=== PATIENT | female | born 1985 ===

== ENCOUNTER 2018-01-23 09:01 | Inpatient (IN) | payer BC, OTHER ==
[2018-01-23 09:14] VITALS: BMI 27.6
[2018-01-23] MEDS ORDERED: Oxytocin 30 UNIT 30 UNITS/500 ML BAG IV ONE ×2 (09:58→09:59)
[2018-01-23] MEDS ORDERED: Lactated Ringer's 1,000 ML IV SCH ×2 (10:00)
--- NOTE | 2018-01-23 10:36 | OBHP ---
Datetime: 01/23/2018 10:14 IP Adm Impression: Term, intrauterine ; Active labor; Intact Membranes IP Chief Complaint Other: Vaginal spotting IP Admit Plan: Admit to unit; Initiate labor protocol Admit Comment, IP Provider: Patient seen and examined at approximately 0946 hours 32 y.o. , LMP 04/26/17, KSENIA 01/31/18, EGA 38w 6d c/o vaginal spotting - noted at 0700 hours when wiping after micturition. Also, onset of Ctx 01/22/18 approx 2100 hours; pain scale now 3/10. (+) AFM; denies LOF. care: Dr. Davila, 1st visit 09/2017; total visits approx 8. Noted for anem ia. P Ob: x 2: 2003, male, 6lbs. 2016, female, 7lb 11 oz, pre-eclampsia. both at [facility]. 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 Denies h/o STIs, abnormal Pap, myomata, ovarian cysts. PMH: denies PSH: denies NKDA Meds: PNV, Fe - both, QD Soc Hx: denies tobacco, illicit drug or EtOH use. x 4 years. Lives with and childr en. Stay at home Fam Hx: Mother age 55 due to CVA, h/o HTN. Father alive 80s -= pt doesn't know much. No k nown fam h/o cancer P.E.: as above. WD in NAD. Awake, alert, oriented to time, person and place. Pleasant and cooperat joy. present and supportive Assessment: 32 y.o. P2012, 38w 6d, entering active phase of labor. Anemic. GBS (-). Category 1 tra cing. D/W patient the following: cervical ripening, then possible pitocin, pain relief. Patient expre ssed an understanding and agrees. No questions offered. Clinically stable. Plan: 1) Admit 2) NPO 3) IVFS 4) Continuous EFM 4) Admission labs 6) Cytotec 50 micrograms p.o. x 1 7) Pitocin 8) Epidural, upon request 9) Anticipate vaginal delivery - as per, and discussed with, Dr. Davila Pelvic Type - PN: Adequate Extremities - PN: Normal Abdomen - PN: Normal Back - PN: Normal Breast - PN: Normal Lungs - PN: Normal Heart - PN: Normal Thyroid - PN: Not Done Neurologic - PN: Normal HEENT - PN: Normal General - PN: Normal Weight - Estimated: 3632 Presentation-Admit: Vertex FHR - Baseline A Provider: 125 Membranes, Provider: Intact Contraction Comments Provider: 8-10 Comments, ACOG Physical Exam: 01/14/18: GBS (-) 12/09/17: 1 hr GTT 118 10/12/17: CF (-); H/H 9.1/28.2; Hgb AA; GC/chl (-)/(-); Pap (-) Abdomen: Gravid. Soft. Non tender. Fundal height 36 cm All other systems reviewed and are negative Gestation - Est Wks by US: 38w 6d IP Hx Assessment: The History has been Reviewed and is Current EGA AdmitDate IP: 38.6 Vital Signs Provider: Reviewed IP Indication for Induction: Not Applicable IP Chief Complaint: Uterine contractions NICHD Variability Prov Fetus A: Moderate 6-25bpm NICHD Accel Fetus A IP Provider: 15X15 FHR Category Provider Fetus A: Category I NICHD Decel Fetus A IP Provider: None Dilatation, Provider: 4-5 Effacement, Provider: 40 Station, Provider: -3 Genitourinary Exam: Normal DTRs - PN: Normal
[2018-01-23 10:49] LABS: BASO # 0.1 K/uL (0.0-0.2); BASO % 0.6 % (0.0-2.0); EOS % 0.4 % (0.0-4.0); LYMPH # 1.4 K/uL (1.0-4.3); LYMPH % 15.3 % (20.0-40.0); MEAN CORPUSCULAR HEMOGLOBIN 22.2 pg (27.0-31.0); MEAN CORPUSCULAR HGB CONC 32.4 g/dL (33.0-37.0); MEAN PLATELET VOLUME 10.2 fL (7.2-11.7); MONO # 0.5 K/uL (0.0-0.8); MONO % 5.2 % (0.0-10.0); NEUT # 7.2 K/uL (1.8-7.0); NEUT % 78.5 % (50.0-75.0); RBC 4.6 Mil/uL (3.80-5.20); RED CELL DISTRIBUTION WIDTH 16.2 % (11.5-14.5); WHITE BLOOD COUNT 9.2 K/uL (4.8-10.8)
[2018-01-23 10:51] LABS: HEMOGLOBIN 10.2 g/dL (11.0-16.0)
[2018-01-23 10:52] LABS: MEAN CELL VOLUME 68.5 fL (81.0-99.0)
[2018-01-23 11:02] LABS: SQUAMOUS EPITHIAL 5 /hpf (0-5); URINE BACTERIA RARE (<OCC); URINE BILIRUBIN NEGATIVE (NEGATIVE); URINE BLOOD 3+ (NEGATIVE); URINE CLARITY Clear (Clear); URINE COLOR Yellow (YELLOW); URINE GLUCOSE (UA) NORMAL (Normal); URINE LEUKOCYTE ESTERASE TRACE Leu/uL (Negative); URINE PROTEIN NEGATIVE (NEGATIVE); URINE UROBILINOGEN NORMAL mg/dL (0.2-1.0)
[2018-01-23 11:03] LABS: ALB/GLOB RATIO 0.9 (1.0-2.1); ALBUMIN 3.6 g/dL (3.5-5.0); ALT/SGPT 36 U/L (9-52); AST/SGOT 31 U/L (14-36); BLOOD UREA NITROGEN 9 mg/dL (7-17); CALCIUM 8.7 mg/dl (8.6-10.4); GFR AFRICAN-AMERICAN > 60; GFR NON-AFRICAN AMERICAN > 60
[2018-01-23] MEDS ORDERED: Fentanyl/Bupivacaine HCl 250 ML EPI ONE (12:09)
[2018-01-23] MEDS ORDERED: Benzocaine/Menthol 20%-0.5% Topical Spray (60 ml) TOP PRN (15:03)
--- NOTE | 2018-01-23 15:03 | OBPN ---
Datetime: 01/23/2018 14:59 IP Progress Impression: Normal progression of labor IP Procedures: Sterile Vag Exam FHR - Baseline A Provider: 130 IP Progress Note Comment: pt was examined at bed side ve fd/100/0 will start pishing anticipate NICHD Variability Prov Fetus A: Moderate 6-25bpm Dilatation, Provider: 10 Effacement, Provider: 100 Station, Provider: 0 NICHD Decel Fetus A IP Provider: Variable Datetime: 01/23/2018 10:14 Membranes, Provider: Intact Contraction Comments Provider: 8-10 Gestation - Est Wks by US: 38w 6d Weight - Estimated: 3632 Presentation-Admit: Vertex Vital Signs Provider: Reviewed NICHD Accel Fetus A IP Provider: 15X15 FHR Category Provider Fetus A: Category I
--- NOTE | 2018-01-23 15:03 | OBADHP ---
Datetime: 01/23/2018 14:59 FHR - Baseline A Provider: 130 NICHD Variability Prov Fetus A: Moderate 6-25bpm NICHD Decel Fetus A IP Provider: Variable Dilatation, Provider: 10 Effacement, Provider: 100 Station, Provider: 0 Datetime: 01/23/2018 10:14 EGA AdmitDate IP: 38.6
--- NOTE | 2018-01-23 15:03 | OBDS ---
DELIVERY PERSONNEL Delivery Doctor: Donn Davila MD Smt Machine Operator: Alexa Farris RN Anesthesiologist: dr. palomino MATERNAL INFORMATION Delivery Anesthesia: Epidural Medications in Delivery: pitocin 20 units Estimated Blood Loss (ml): 300 Placenta Cultured: No Maternal Complications: None RN Comments: h/o anemia h/o pre eclempsia with last 2015 late registration (6months) Provider Comments: dr private davila baby deliverd in nate. end chastity. cord arrpund neck loose. cord gas. ui ux developer com LABOR SUMMARY EDC: 01/31/2018 00:00 No. Babies in Womb: 1 Attempted: No LABOR INFORMATION Reason for Induction: Not Applicable Onset of Labor: 01/22/2018 21:00 Cervical Ripening Agents: Cytotec @ (Annotations: 50 mcg orally) Group B Beta Strep: Negative Steroids Given: None Reason Steroids Not Administered: Not Applicable MEMBRANES Membranes Rupture Method: Artificial Rupture of Membranes: 01/23/2018 13:11 Length of Rupture (hrs): 1.60 Amniotic Fluid Color: Clear Amniotic Fluid Amount: Moderate Amniotic Fluid Odor: Normal STAGES OF LABOR Stage 3 hrs: 0 Stage 3 min: 2 Total Time in Labor hrs: 17 Total Time in Labor min: 49 VAGINAL DELIVERY Episiotomy: Right Mediolateral Laceration Extension: N/A Laceration Type: None Laceration Repair Note: repaired with 2 and 3 chromic BABY A INFORMATION Infant Delivery Date/Time: 01/23/2018 14:47 Method of Delivery: Vaginal Born in Route : No : N/A SHOULDER DYSTOCIA BABY A Delivery Date/Time: 01/23/2018 14:47 PRESENTATION/POSITION BABY A Presentation: Cephalic Cephalic Presentation: Vertex Vertex Position: Right Occipital Anterior Breech Presentation: N/A PLACENTA INFORMATION BABY A Placenta Delivery Time : 01/23/2018 14:49 Placenta Method of Delivery: Spontaneous Placenta Status: Delivered SCORES BABY A Heart Rate 1 min: >100 bpm Resp Effort 1 min: Good Cry Reflex Irritability 1 min: Cough or Sneeze or Pulls Away Muscle Tone 1 min: Active Motion Color 1 min: Body [place], Extremities Blue SCORE 1 MIN: 9 Heart Rate 5 min: >100 bpm Resp Effort 5 min: Good Cry Reflex Irritability 5 min: Cough or Sneeze or Pulls Away Muscle Tone 5 min: Active Motion Color 5 min: Body [place], Extremities Blue SCORE 5 MIN: 9 INFORMATION BABY A Gestational Age at Delivery: 38.6 Gestational Status: Term Infant Outcome : Liveborn Condition : Stable Infant Sex: Female IDENTIFICATION/MEDS BABY A ID Band Number: [id number] ID Band Location: Left Leg; Left Arm Sensor Applied: Yes Sensor Number: [id number] Sensor Location : Cord Clamp Vitamin K Given : Aquamephyton 0.5 mg IM Erythromycin Given: Given Both Eyes WEIGHT/LENGTH BABY A Infant Birthweight (gms): 3265 Infant Weight (lb): 7 Weight (oz): 3 Length Inches: 19.50 Infant Length cms: 49.5 CORD INFORMATION BABY A No. Cord Vessels: 3 Nuchal Cord : Around Neck x1, Loose Nuchal Cord Other: 0 True Knot: 0 Cord Blood Taken: Yes Suction: Mouth ASSESSMENT BABY A Infant Complications: None Physical Findings at Delivery: Within Normal Limits Respirations: Appears Normal Filing Clerk/ALS Called : No Infant Care By: asia baldwin Transferred To: Remains with Mother
[2018-01-23] MEDS ORDERED: Oxytocin 30 UNIT 30 UNITS/500 ML BAG IV SCH (15:15)
[2018-01-23] MEDS ORDERED: Oxycodone/Acetaminophen 5/325 mg Tab PO PRN ×2 (15:30)
[2018-01-24 08:03] LABS: BASO # 0.1 K/uL (0.0-0.2); BASO % 0.7 % (0.0-2.0); EOS # 0.1 K/uL (0.0-0.7); EOS % 0.5 % (0.0-4.0); LYMPH # 1.6 K/uL (1.0-4.3); LYMPH % 13.4 % (20.0-40.0); MEAN CELL VOLUME 68.3 fL (81.0-99.0); MEAN CORPUSCULAR HEMOGLOBIN 21.9 pg (27.0-31.0); MEAN CORPUSCULAR HGB CONC 32.1 g/dL (33.0-37.0); MEAN PLATELET VOLUME 9.9 fL (7.2-11.7); MONO # 0.5 K/uL (0.0-0.8); MONO % 4.4 % (0.0-10.0); NEUT # 9.8 K/uL (1.8-7.0); RBC 4.12 Mil/uL (3.80-5.20); RED CELL DISTRIBUTION WIDTH 16.4 % (11.5-14.5); WHITE BLOOD COUNT 12.1 K/uL (4.8-10.8)
[2018-01-24] MEDS ORDERED: Tdap Vaccine 0.5 ml Vial (10-64 yrs) IM ONE (15:03)
[2018-01-25 09:59] VITALS: BP 129/78; PULSE 84; RESP 18; TEMP 97.3; O2SAT 99
== END 2018-01-25 10:54 | disposition home or self-care (01) | DRG 775 ==
LOC: C.EROB 09:01 → C.4D 09:55 → C.4M 16:49
PROVIDERS: ADMIT Obstetrics & Gynecology; ATTEND Obstetrics & Gynecology
PROC: 10E0XZZ Delivery of Products of Conception, External Approach (ICD-10-PCS; principal; 2018-01-23)
PROC: 0W8NXZZ Division of Female Perineum, External Approach (ICD-10-PCS; 2018-01-23)
DX: O99.02 Anemia complicating childbirth (principal); O69.81X0 Labor and delivery complicated by cord around neck, without compression, not applicable or unspecified; D64.9 Anemia, unspecified; Z3A.38 38 weeks gestation of pregnancy; Z37.0 Single live birth